=== PATIENT | male | born 1995 | race African-American/Black ===

== ENCOUNTER 2019-06-01 23:08 | Emergency (ER) | payer OTHER ==
[2019-06-01 23:11] VITALS: BP 117/77; PULSE 80; TEMP 98.1; BMI 27.8
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
[2019-06-02] MEDS ORDERED: KETOROLAC TROMETHAMINE 30 MG/1 ML VIAL IM ONE (00:30)
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
[2019-06-02] MEDS ORDERED: KETOROLAC TROMETHAMINE 30 MG/1 ML VIAL ONE (00:47)
== END 2019-06-02 00:54 | disposition home or self-care (01) ==
LOC: JER 23:08
PROC: 3E0233Z Introduction of Anti-inflammatory into Muscle, Percutaneous Approach (ICD-10-PCS; principal; 2019-06-01)
DX: S13.4XXA Sprain of ligaments of cervical spine, initial encounter (principal); V49.49XA Driver injured in collision with other motor vehicles in traffic accident, initial encounter; W22.11XA Striking against or struck by driver side automobile airbag, initial encounter; Y92.488 Other paved roadways as the place of occurrence of the external cause; Y93.89 Activity, other specified; Y99.8 Other external cause status
CPT/HCPCS: 99281-25